=== PATIENT | female | born 1990 | race Caucasian/White ===

== ENCOUNTER 2021-01-15 21:05 | Emergency (ER) | payer OTHER, SELFPAY ==
[2021-01-15 21:10] VITALS: RESP 16; BMI 25.9
[2021-01-15 21:37] VITALS: BP 128/74; PULSE 92; RESP 14; TEMP 36.4; O2SAT 97
--- NOTE | 2021-01-15 21:52 | ED_ITS ---
HPI - Alcohol General Chief Complaint: ETOH/Substance Use Stated Complaint: ETOH Time Seen by Provider: 01/15/21 21:34 Source: patient Mode of arrival: EMS Limitations: other (Patient is intoxicated) History of Present Illness HPI narrative: 30-year-old female who was sent to the emergency department by police for acute intoxication and wellness check. The patient told me that was drinking vodka today. She cannot recount how much alcohol she drank. She states that she got in a fight with her and went to a hotel because she needed some space. She states that her was concerned about her and c alled he called police to do a wellness check at the hotel. The police found the patient to be intoxicated and disorderly and the patient agreed to come to the hospital for a wellness check and evaluation. Here in the emergency department the patient is acutely intoxicated but is able to answer all questions appropriately. She states that she has a 7-month-old daughter that she would never hurt herself or anyone else. She denied being suicidal or homicidal. The patient states that she does have anxiety. She states that when she was 22 she did cut herself but has not cut herself since then. Here in the emergency department the patient does appear to be intoxicated and does have a staggering gait but is able to walk. She is able answer all questions appropriately. After my interview, the patient agreed to stay in the chair and sleep until she was sober however she attempted to get up and leave the emergency department, security had to be contacted and the patient was escorted back to her hallway chair. The patient called her and I did talk to him over the phone. He states that he is willing to pick her up and take her home and assume care of her. The patient will be kept in the emergency department until her arrives to take her home. Review of Systems Review of Systems: Yes all other systems are reviewed and are negative [facility] Past Medical History [facility] Narrative: Past medical history: Anxiety, celiac disease. Past surgical history: 7 months prior. Social history: The patient is . She has a 7-month-old daughter. She denies tobacco use. She states that she drinks alcohol twice a week and mainly drinks vodka. She does admit to drinking vodka today but cannot quantify how much she drank. Social History Social History Advance Directives: No Advance Directives Information Provided: No Patient : No Physical Exam Vital Signs: Vital Signs: Last Vital Signs Temp 97.5 F 01/15/21 21:37 Pulse 92 01/15/21 21:37 Resp 14 01/15/21 21:37 BP 128/74 01/15/21 21:37 Pulse Ox 97 01/15/21 21:37 Body Mass Index 25.9 Const: Other: Awake, alert female, patient does have the odor of alcohol on her breath, she has a bur to answer all questions appropriately. The patient does have a staggering gait but is able to walk without assistance. HENMT: Head: Yes normal to inspection, Yes normocephalic and Yes atraumatic Ears: external ears normal General nose exam: Normal external nose present Face and sinus: Yes normal facial exam Mouth: Normal oral and palatal mucosa present Throat: Yes posterior oropharynx normal Eyes: General: appearance normal, both eyes and all related structures Pupils: Equal, round and reactive pupils present Neck: Neck: Yes normal visual inspection, Yes no lymphadenopathy, Yes trachea midline and Yes supple Chest: Chest palpation & inspection: normal inspection of the chest and normal palpation of entire chest wall Resp: Effort & Inspection: normal respiratory effort and able to speak in complete sentences Auscultation: clear to auscultation bilaterally Cardio: Rate: regular rate Rhythm: regular rhythm Heart sounds: S1 normal heart sound present, S2 normal heart sound present and no murmurs GI: Inspection: Yes normal to inspection Palpation (GI): Soft to palpation, nontender and no guarding Auscultation: normal bowel sounds : General: Yes no CVA tenderness Back/Spine/Pelvis: Back: no CVA tenderness Skin: General skin exam: no rashes or lesions noted Neuro: Cranial nerves: Yes CN's II-XII intact bilaterally and Yes Equal, round and reactive pupils present Cognition (Neuro): normal cognition Motor exam (neuro): 5/5 motor strength present throughout Extrem: General: Yes normal to inspection Psych: Appearance: grossly normal Speech and movement: Normal speech and movement present Affect: normal affect Attitude: cooperative Thought process: Normal thought process present Thought content: suicidality and no homicidality Course Course Course Narrative: 30-year-old female who got into an argument with her , she was drinking alcohol this evening and she checked herself into a hotel in order to ?get some space ?. The patient's was concerned that the patient went to a hotel and called the police to do a wellness check. The police found the patient to be acutely intoxicated and uncooperative, the patient did voluntarily agree to come to the emergency department for evaluation. The patient does appear to be acutely intoxicated however she does answer all questions appropriately and is able to walk with a staggering gait. She denied being suicidal or homicidal. The patient wants to leave the emergency department and does not want any further evaluation, she refused blood work and she does not want to talk to a crisis counselor. I did discuss this with the patient's and he states that he will come to the emergency department, assumed care of the patient and take her home. The patient did tell me that she feels safe with her and does not feel threatened in any way and does feel safe going home with him. Discharge Plan Discharge Clinical Impression: Alcoholic intoxication Patient Disposition: Home, Self-Care Instructions: Alcohol Intoxication (ED), Alcohol Use Disorder (ED) Additional Instructions: Your being discharged home in the care of your . You should consider getting counseling for your alcohol use disorder. Follow-up with your doctor in 2 days. Please return to the emergency department if your symptoms get worse or if you develop any symptoms that are concerning to you.
== END 2021-01-15 22:08 | disposition home or self-care (01) ==
PROVIDERS: Emergency Provider Emergency Medicine Emergency Medical Services
DX: F10.129 Alcohol abuse with intoxication, unspecified (principal); Y90.9 Presence of alcohol in blood, level not specified
CPT/HCPCS: 99283

== ENCOUNTER 2021-09-28 13:28 | Emergency (ER) | payer OTHER, SELFPAY ==
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
[2021-09-28 13:55] VITALS: BP 131/76; PULSE 130; RESP 16; TEMP 37.1; O2SAT 98
[2021-09-28 13:58] LABS: MANUAL DIFF FLAG NO
[2021-09-28 14:10] LABS: Basophils Percent Auto 0.2 % (0-2); Hematocrit 43.3 % (37.0-47.0); Hemoglobin 14.3 g/dl (12.0-16.0); Imm Gran Abs Auto 0.02 X10*3/uL (0.00-0.03); Imm Gran Pct Auto 0.3 % (0.0-0.4); Lymphocytes Absolute Auto 1.1 X10*3/uL (1.2-4.9); Lymphocytes Percent Auto 17.4 % (20-40); Mean Corpuscular Hemoglobin 30.4 pg (27.0-33.0); Mean Corpuscular Volume 92.1 fL (80.0-98.0); Mean Platelet Volume 9.2 fL (9.4-12.3); Monocytes Absolute Auto 0.4 X10*3/uL (0.1-1.2); Monocytes Percent Auto 5.8 % (2-11); Neutrophils Percent Auto 76.3 % (45-73); Platelet Count 233 X10*3/uL (160-400); Red Cell Distribution Width 13.5 % (11.0-16.0); White Blood Count 6.5 X10*3/uL (4.8-10.8)
--- NOTE | 2021-09-28 14:11 | PC.NURSE ---
ED delivery technician brought to authors attention that pt was verbalizing SI while taking vitals, and stated she wanted to see crisis. approached pt, pt calm, making eye contact, speaking in full sentances. states she wishes to see crisis. report called to JOYCE Soto. pt moved to pod. pt was medically cleared by JOSÉ Dockery prior to transfer to .
[2021-09-28 14:18] LABS: Alanine Aminotransferase 31 U/L (0-31); Albumin Level 4.7 g/dL (3.5-5.0); Alkaline Phosphatase 96 U/L (39-117); Anion Gap 16 (12-20); Aspartate Amino Transferase 19 U/L (5-31); Bilirubin Total 0.5 mg/dL (0.0-1.0); Blood Urea Nitrogen 14 mg/dL (9-16); Calcium 9.1 mg/dL (8.4-10.2); Carbon Dioxide 18 mmol/L (22-29); Chloride 109 mmol/L (96-108); Estimated Glomerular Filt Rate > 60; Glucose Random 146 mg/dL (60-115); Potassium 3.3 mmol/L (3.3-5.1); Sodium 140 mmol/L (135-145); Total Protein 7.6 g/dL (6.5-8.0)
[2021-09-28 14:38] VITALS: BMI 28.3
--- NOTE | 2021-09-28 14:46 | MHC.CARE ---
Section 12A signed
--- NOTE | 2021-09-28 14:46 | MHC.CARE ---
Pt pending crisis eval after toxicology screen completed.
--- NOTE | 2021-09-28 14:49 | PC.NURSE ---
PT CAME UP TO NURSES STATION STATING SHE NEEDED TO LEAVE NOW. SECTION 12 PLACED ON CHART BY CARE TEAM
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
[2021-09-28 15:45] LABS: COVID-19 Test Negative (Negative); IDNOW Serial# 55D5AD1C
[2021-09-28 16:07] LABS: Ethanol 85 mg/dL
--- NOTE | 2021-09-28 16:12 | PC.NURSE ---
pt asking to read section 12 paperwork, explained that patient is here pending re eval. pt is tearful, but cooperative. multiple phone calls made to family by pt.
--- NOTE | 2021-09-28 16:30 | PC.NURSE ---
urine sample obtained.
[2021-09-28 16:41] LABS: Appearance Urine CLEAR; Color Urine YELLOW; Glucose Urine UA NEG (NEG); Leukocyte Esterase Urine NEG (NEG); Nitrite Urine NEG (NEG); Urine Blood NEG (NEG); Urine Ketones NEG (NEG); Urine Protein NEG (NEG-TRACE)
[2021-09-28 16:57] LABS: Amphetamine Screen Urine Not Detected (Not Detect); Barbiturates, Urine Not Detected (Not Detect); Benzodiazepines Screen Urine Not Detected (Not Detect); Cannabinoid Screen Urine Not Detected (Not Detect); Cocaine Screen Urine Not Detected (Not Detect); Fentanyl, urine Not Detected (Not Detect); Opiate Screen Urine Not Detected (Not Detect); Phencyclidine Screen Urine Not Detected (Not Detect)
--- NOTE | 2021-09-28 18:28 | PC.NURSE ---
Elen documented w pt BAL and tox results, per CARE team, plan for supervisor core drilling to come by ilya for eval.
[2021-09-28] MEDS: Famotidine 20 MG TABLET 40 MG PO (19:31)
[2021-09-28] MEDS: DULoxetine HCl 60 MG CAPSULE.DR 120 MG PO (19:31)
[2021-09-28] MEDS: hydrOXYzine HCL 50 MG TABLET PO (19:32)
[2021-09-28] MEDS: lisinopriL 10 MG TABLET PO (19:32)
[2021-09-28] MEDS: OLANZapine 10 MG TABLET 20 MG PO (19:32)
[2021-09-28] MEDS: Topiramate 100 MG TABLET PO (19:32)
[2021-09-28] MEDS: Doxepin HCl 10 MG CAPSULE PO (19:58)
--- NOTE | 2021-09-28 20:06 | PC.NURSE ---
Patient received her nighttime medication at 2004, requested her Ambien advised wait for an hour for clinician, agreed, currently in her room resting, VSS, will continue to monitor.
[2021-09-28 20:59] VITALS: BP 147/99; PULSE 107
[2021-09-28] MEDS: Zolpidem Tartrate 5 MG TABLET 10 MG PO (21:22)
[2021-09-28] MEDS: LORazepam 1 MG TABLET PO (21:22)
[2021-09-29 01:38] VITALS: BP 123/95; PULSE 102; RESP 17; TEMP 36.6; O2SAT 100
--- NOTE | 2021-09-29 06:37 | PC.NURSE ---
Patient slept through the night, no distress observed/reported, [facility] referral completed/confirmed/pending ETA, medication compliant, asymptomatic of withdrawal, Ativan 1 mg po administered at HS with + effect, VSS, behavior non concerning, will continue to monitor.
[2021-09-29] MEDS: hydrOXYzine HCL 50 MG TABLET PO (07:16)
[2021-09-29] MEDS: DULoxetine HCl 60 MG CAPSULE.DR 120 MG PO (07:16)
[2021-09-29] MEDS: Famotidine 20 MG TABLET 40 MG PO (07:25)
[2021-09-29] MEDS: LORazepam 1 MG TABLET PO (09:05)
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
--- NOTE | 2021-09-30 14:21 | MHC.CARE ---
Follow up phone call after discharge, no answer, left message requesting a return phone call.
--- NOTE | 2021-10-01 09:56 | MHC.CARE ---
CARE Team completed followup call
== END 2021-09-29 10:46 | disposition home or self-care (01) ==
PROVIDERS: Physician Assistant Medical; Emergency Provider Emergency Medicine Emergency Medical Services; PCP Physician Assistant
DX: F33.1 Major depressive disorder, recurrent, moderate (principal); R45.851 Suicidal ideations; F43.11 Post-traumatic stress disorder, acute; Z20.822 Contact with and (suspected) exposure to COVID-19; Z79.899 Other long term (current) drug therapy
CPT/HCPCS: 36415; 80053; 80307; 81003; 82077; 85025; 87635; 99284

== ENCOUNTER 2022-02-11 11:36 | Emergency (ER) | payer MEDICAID, SELFPAY ==
--- NOTE | ~2022-02-11 | XR_ITS ---
EXAMINATION: XR CHEST CLINICAL INFORMATION: Mental status change. COMPARISON: None TECHNIQUE: Frontal view of the chest was obtained. FINDINGS: Low lung volumes and evaluation. The lungs are clear. The heart and mediastinal structures are unremarkable. XR/XR chest 1V IMPRESSION: No acute cardiopulmonary process.
--- NOTE | ~2022-02-11 | CT_ITS ---
EXAMINATION: CT HEAD WITHOUT CONTRAST CLINICAL INFORMATION: Mental status change. COMPARISON: None TECHNIQUE: Contiguous axial imaging was performed from the skull base to vertex without intravenous administration of contrast. Coronal and sagittal reformatted images were obtained. Several AP scans repeated secondary to motion artifact. This CT examination was performed using dose optimization techniques as appropriate, variously including the following: *Automated exposure control *Adjustment of mA and/or kV according to patient size (this includes techniques or standardized protocols for targeted exams where dose is matched to indication/reason for exam; i.e. extremities or head) *Use of iterative reconstruction technique DLP: 1264 mGy-cm FINDINGS: The cortical sulci are normal. The lateral ventricles are symmetrical. The third and fourth ventricles are in their normal midline position. The basilar and prepontine cisterns are unremarkable. There is no acute intra or extracerebral abnormality. There is no mass effect or midline shift. Sections through the bony calvarium are unremarkable. The paranasal sinuses are clear. The bony orbits and orbital contents are unremarkable. CT/CT head/brain wo IV con IMPRESSION: No acute intracranial pathology.
[2022-02-11 11:58] VITALS: BP 110/80; PULSE 110; O2SAT 99
--- NOTE | 2022-02-11 12:01 | ECG_ITS ---
Test Reason : AMS Blood Pressure : / mmHG Vent. Rate : 102 BPM Atrial Rate : 102 BPM P-R Int : 146 ms QRS Dur : 102 ms QT Int : 374 ms P-R-T Axes : 000 147 142 degrees QTc Int : 487 ms Sinus tachycardia Left posterior fascicular block RSR' or QR pattern in V1 suggests right ventricular conduction delay Possible Suspect limb lead reversal, interpretation assumes no reversal Abnormal ECG No previous ECGs available suggest repeat study Referred By: Duglas Reyes Electronically Signed By:JOSÉ ANTONIO MEDEL MD
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
[2022-02-11 12:22] LABS: Appearance Urine Clear; Color Urine Yellow; Glucose Urine UA Negative (Negative); Leukocyte Esterase Urine Negative (Negative); Nitrite Urine Negative (Negative); PH 6.5 (5.0-9.0); Specific Gravity - Urine <= 1.005 (1.005-1.025); Urine Blood Negative (Negative); Urine Ketones Negative (Negative); Urine Protein Negative (Neg-Trace)
[2022-02-11 12:23] LABS: UPreg QC Valid YES; Urine Pregnancy NEGATIVE (NEGATIVE)
[2022-02-11 12:31] LABS: COVID-19 Test Negative (Negative); IDNOW Serial# 9DB6401D
[2022-02-11 12:33] VITALS: BP 114/62; PULSE 97; RESP 16; TEMP 35.6; O2SAT 96; BMI 22.7
[2022-02-11 12:56] LABS: MANUAL DIFF FLAG NO
[2022-02-11 12:58] LABS: Hematocrit 41.7 % (37.0-47.0); Hemoglobin 13.9 g/dl (12.0-16.0); Imm Gran Abs Auto 0.01 X10*3/uL (0.00-0.03); Imm Gran Pct Auto 0.2 % (0.0-0.4); Lymphocytes Absolute Auto 1.6 X10*3/uL (1.2-4.9); Lymphocytes Percent Auto 26.8 % (20-40); Mean Corpuscular HGB Conc 33.3 g/dl (31.0-35.0); Mean Corpuscular Hemoglobin 30.5 pg (27.0-33.0); Mean Corpuscular Volume 91.6 fL (80.0-98.0); Mean Platelet Volume 9.4 fL (9.4-12.3); Monocytes Absolute Auto 0.3 X10*3/uL (0.1-1.2); Monocytes Percent Auto 5.6 % (2-11); Neutrophils Absolute Auto 4.1 x10*3/uL (2.0-8.3); Neutrophils Percent Auto 67.4 % (45-73); Platelet Count 207 X10*3/uL (160-400); Red Blood Count 4.55 X10*6/uL (4.20-5.50)
[2022-02-11 13:12] LABS: Ethanol 321 mg/dL
[2022-02-11 13:15] LABS: Amphetamine Screen Urine Not Detected (Not Detect); Barbiturates, Urine Not Detected (Not Detect); Benzodiazepines Screen Urine Not Detected (Not Detect); Cannabinoid Screen Urine Not Detected (Not Detect); Cocaine Screen Urine Not Detected (Not Detect); Fentanyl, urine Not Detected (Not Detect); Opiate Screen Urine Not Detected (Not Detect); Phencyclidine Screen Urine Not Detected (Not Detect)
[2022-02-11 13:15] LABS: Acetaminophen LAB < 1 mcg/mL (<30); Magnesium 2.6 mg/dL (1.6-2.6); Salicylate < 5.0 mg/dL (15-30)
[2022-02-11 13:17] LABS: Alanine Aminotransferase 38 U/L (0-31); Albumin Level 4.7 g/dL (3.5-5.0); Alkaline Phosphatase 95 U/L (39-117); Anion Gap 18 (12-20); Aspartate Amino Transferase 20 U/L (5-31); Bilirubin Direct < 0.2 mg/dL (0.0-0.5); Bilirubin Total 0.2 mg/dL (0.0-1.0); Blood Urea Nitrogen 10 mg/dL (9-16); Calcium 8.6 mg/dL (8.4-10.2); Carbon Dioxide 17 mmol/L (22-29); Chloride 113 mmol/L (96-108); Creatinine Clr Calc Pharmacy 91.9; Estimated Glomerular Filt Rate > 60; Glucose Random 96 mg/dL (60-115); Lipase 17 U/L (8-78); Potassium 3.7 mmol/L (3.3-5.1); Sodium 144 mmol/L (135-145); Total Protein 7.7 g/dL (6.5-8.0)
[2022-02-11 13:20] LABS: B Type Natriuretic Peptide 14 pg/mL (<100)
[2022-02-11] MEDS: 0.9 % Sodium Chloride 1,000 ML 999 ML IV (13:50)
--- OUTSIDE RECORDS SUMMARY | 2022-02-11 13:57 | XMS_ITS | Continuity of Care Document ---
:1990 Author Organization [facility] Address [address] [place] [address]- Care Team Providers Name Role Phone Not on Staff, PCP Primary Care Physician Unavailable Encounter [facility] NBR [id number] Date(s): 05/17/21 - 06/16/21 [facility] [address] [place], [place] [id number]
--- OUTSIDE RECORDS SUMMARY | 2022-02-11 13:57 | XMS_ITS | Continuity of Care Document ---
:1990 Author Organization [facility] Address [address] [place] [address], [address] [place] [id number]- Care Team Providers Name Role Phone Tyson Zapata Primary Care Physician Encounter [facility] Date(s): 09/19/21 - 10/19/21 [facility] [address] [place] [address], [address] [place] [id number] Attending Physician: AdmAdriana ortiz Admitting Physician: AdmtrAdriana Referring Physician: Admtr, Ar8 Allergies, Adverse Reactions, Alerts Substance Reaction Severity Status Glutens Active Wheat Active anabolic steroids1 Active 1Family hx of pyschiatric issues with steroids Immunizations Given and Recorded Vaccine Date Status Refusal Reason SARS-CoV-2 (COVID-19) mRNA BNT-162b2 vac 01/26/21 Recorde d influenza virus vaccine, inactivated 12/21/20 Recorded influenza virus vaccine, inactivated 02/05/15 Recorded hepatitis B adult vaccine 12/02/16 Recorded tetanus/diphtheria/pertussis, acel(Tdap) 04/07/14 Recorde d tetanus/diphtheria/pertussis, acel(Tdap) 11/21/05 Recorde d Human Papillomavirus Vaccine 06/26/07 Recorded Human Papillomavirus Vaccine 03/10/07 Recorded Human Papillomavirus Vaccine 01/06/07 Recorded Measles/Mumps/Rubella Virus Vaccine 12/02/95 Recorded Measles/Mumps/Rubella Virus Vaccine 02/15/93 Recorded Poliovirus Vaccine, Inactivated 11/21/95 Recorded Poliovirus Vaccine, Inactivated 05/15/93 Recorded Poliovirus Vaccine, Inactivated 03/16/92 Recorded Poliovirus Vaccine, Inactivated 01/20/92 Recorded diphtheria/tetanus/pertussis, acel(DTaP) 11/21/95 Recorde d diphtheria/tetanus/pertussis, acel(DTaP) 05/15/93 Recorde d diphtheria/tetanus/pertussis, acel(DTaP) 06/05/92 Recorde d diphtheria/tetanus/pertussis, acel(DTaP) 03/16/92 Recorde d diphtheria/tetanus/pertussis, acel(DTaP) 01/20/92 Recorde d hepatitis B pediatric vaccine 08/17/92 Recorded hepatitis B pediatric vaccine 01/20/92 Recorded hepatitis B pediatric vaccine 91 Recorded Medications famotidine 40 mg oral tablet 1 tablet = 40 mg, By Mouth, 2 times a day, Take twice a day morning and night on an empty stomach for at least 2 weeks if symptoms improve reduced to a daily dose, # 60 tablet, 2 Refills, Maintenance, 09/20/21 16:28:00 EDT, Tablet, [email or web address] Start Date: 09/20/21 Stop Date: 12/19/21 Status: Ordered Problem List Condition Effective Dates Status Health Status Informant Anxiety(Confirmed) Active Celiac disease(Confirmed) Active Depression(Confirmed) Active Hypertension(Confirmed) Active Insomnia(Confirmed) Active PTSD (post-traumatic stress Active disorder)(Confirmed) Fatty liver(Confirmed) Active Social History Social History Type Response Smoking Status Never (less than 100 in life time) entered on: 06/28/21 Sex
--- OUTSIDE RECORDS SUMMARY | 2022-02-11 13:57 | XMS_ITS | Continuity of Care Document ---
:1990 Author Organization [facility] Address [address] [place] [address]- Care Team Providers Name Role Phone Tyson Zapata Primary Care Physician Encounter [facility] Date(s): 05/17/21 - 07/18/21 [facility] [address] [place] [address]- Attending Physician: Crow Ya Allergies, Adverse Reactions, Alerts Substance Reaction Severity [...] Recorded hepatitis B pediatric vaccine 91 Recorded Problem List Condition Effective Dates Status Health Status Informant Anxiety(Confirmed) Active Celiac disease(Confirmed) Active Depression(Confirmed) Active Hypertension(Confirmed) Active Insomnia(Confirmed) Active PTSD (post-traumatic stress Active disorder)(Confirmed) Fatty liver(Confirmed) Active Social History Social History Type Response Smoking Status Never (less than 100 in life time) entered on: 06/28/21 Sex
--- OUTSIDE RECORDS SUMMARY | 2022-02-11 13:57 | XMS_ITS | Continuity of Care Document ---
:1990 Author Organization [facility] Address [address] [place] [address]- Care Team Providers Name Role Phone Tyson Zapata Primary Care Physician Encounter [facility] Date(s): 05/17/21 - 06/28/21 [facility] [address] [place] [address]- Attending Physician: Christiano EID [facility] Allergies, Adverse Reactions, Alerts Substance Reaction Severity [...]
--- OUTSIDE RECORDS SUMMARY | 2022-02-11 13:57 | XMS_ITS | Continuity of Care Document ---
:1990 Author Organization [facility] Address [address] [place] [address], [address] [place] [id number]- Care Team Providers Name Role Phone Tyson Zapata Primary Care Physician [facility] Date(s): 07/04/21 - 10/19/21 [facility] [address] [place] [address], [address] [place] [id number] Attending Physician: Not on Staff, Attending MD Referring Physician: Tsyon Zapata Allergies, Adverse Reactions, Alerts Substance Reaction Severity [...] 2 Refills, Maintenance, 09/20/21 16:28:00 EDT, Tablet, [facility]... Start Date: 09/20/21 Stop Date: [...]
--- NOTE | 2022-02-11 14:14 | PC.NURSE ---
Pt sleeping, at bedside. IV established and fluids running. Pt up to use restroom with two assist as pt is unsteady on her feet.
--- NOTE | 2022-02-11 16:42 | PC.NURSE ---
patient exit seeking multiple times, stating she needs to go home and does not need to stay here. patient a high fall risk and alcohol level in the 300s. patient unsafe to go home or ambulate independently. patient placed in physical restraints by security. order placed by
[2022-02-11] MEDS: LORazepam 1 MG TABLET 2 MG PO (17:00)
--- NOTE | 2022-02-11 17:01 | PC.NURSE ---
pt offered po ativan to help relax her while in restraints. pt accepts. MD ordered and ativan administered. pt tolerating restraints well. hydration provided, cms intact. will continue to monitor closely
[2022-02-11 17:11] VITALS: BP 137/88; PULSE 116; RESP 18; O2SAT 97
--- NOTE | 2022-02-11 18:27 | PC.NURSE ---
2 arm restraints removed by MD Reyes @[phone]
--- NOTE | 2022-02-11 19:05 | PC.NURSE ---
patient eloped - given belongings/phone/purse to contact family for safe ride home per MD Reyes request - pt then took belongings and eloped. apparently let out of department by security. MD BREEN'd. patients talked to on phone.
[2022-02-11 19:06] LABS: Ethanol 196 mg/dL
== END 2022-02-11 19:07 | disposition left against medical advice (07) ==
PROVIDERS: Emergency Provider Emergency Medicine
DX: R41.82 Altered mental status, unspecified (principal); F10.920 Alcohol use, unspecified with intoxication, uncomplicated; Y90.8 Blood alcohol level of 240 mg/100 ml or more; R45.1 Restlessness and agitation; Z78.1 Physical restraint status; Z20.822 Contact with and (suspected) exposure to COVID-19; Z79.899 Other long term (current) drug therapy
CPT/HCPCS: 36415; 70450; 71045; 80048; 80076; 80143; 80179; 80307; 81003; 81025; 82077; 83605; 83690; 83735; 83880; 85025; 87635; 93005; 96360; 96361; 99284

== ENCOUNTER 2022-08-12 11:28 | Emergency (ER) | payer OTHER, SELFPAY ==
[2022-08-12 11:43] VITALS: BP 143/92; PULSE 92; RESP 18; TEMP 36.6; O2SAT 98; BMI 27.5
[2022-08-12 11:57] LABS: Appearance Urine Clear; Color Urine Yellow; Glucose Urine UA Negative (Negative); Leukocyte Esterase Urine Negative (Negative); Nitrite Urine Negative (Negative); Specific Gravity - Urine 1.015 (1.005-1.025); Urine Blood Negative (Negative); Urine Ketones Negative (Negative); Urine Protein Negative (Neg-Trace)
[2022-08-12 11:58] LABS: Urine Pregnancy NEGATIVE (NEGATIVE)
[2022-08-12 11:59] LABS: UPreg QC Valid YES
--- NOTE | 2022-08-12 12:00 | ED.MEDCLEAR ---
HPI - Medical Clearance General Chief complaint: Medical Clearance Stated complaint: medical clearence Time Seen by Provider: 08/12/22 11:58 Source: patient Mode of arrival: ambulatory Limitations: no limitations History of Present Illness HPI Narrative: Patient is a 31 year old assigned female at with a history of anxiety presenting to the emergency department today requesting medical clearance to go to a half way house. Patient states that she needs to get cleared to go to a half way house by getting a drug test and a covid test. Patient denies any dizziness, lightheadedness, abdominal pain, nausea, vomiting, fever, chills, blurry vision, double vision, loss of vision, chest pain, difficulty breathing, shortness of breath, back pain, night sweats, pain with urination, increased urinary frequency, increased urinary urgency, blood in her urine or stool, syncope or a near syncopal episode, recent trauma or falls, bowel incontinence, bladder incontinence, bowel retention, bladder retention, or any other complaints at this time. Treatments Prior to Arrival: none Related Information Home Medications Medication Instructions Recorded Confirmed Vitamin D3 09/28/21 doxepin 10 mg capsule 1 cap PO BEDTIME 09/28/21 09/28/21 duloxetine 60 mg capsule,delayed 2 cap PO QAM 09/28/21 09/28/21 release famotidine 40 mg tablet 1 tab PO BID 09/28/21 09/28/21 hydroxyzine HCl 50 mg tablet 1 tab PO BID 09/28/21 09/28/21 lisinopril 10 mg tablet 1 tab PO BEDTIME 09/28/21 09/28/21 multivitamin cap 09/28/21 olanzapine 20 mg tablet 1 tab PO BEDTIME 09/28/21 09/28/21 topiramate 100 mg tablet 1 tab PO QPM 09/28/21 09/28/21 zolpidem 10 mg tablet 1 tab PO BEDTIME PRN Insomnia 09/28/21 09/28/21 Allergies Allergy/AdvReac Type Severity Reaction Status Date / Time No Known Allergies Allergy Verified 08/12/22 11:42 Review of Systems Constitutional: Constitutional: Reports no additional constitutional complaints, Denies chills, Denies fever(s) and Denies night sweats Eyes: Eyes: Reports no additional eye complaints, Denies blurry vision, Denies change in vision, Denies diplopia, Denies eye discharge, Denies loss of vision and Denies eye pain ENT: Denies dizziness Cardiovascular: Cardiovascular: Reports no additional cardiovascular complaints, Denies chest pain, Denies lightheadedness, Denies Loss of Consciousness and Denies dyspnea Respiratory: Respiratory: Reports no additional respiratory complaints and Denies dyspnea Gastrointestinal: Gastrointestinal: Reports no additional gastrointestinal complaints, Denies abdominal pain, Denies melena, Denies hematochezia, Denies change in bowel habits and Denies change in stool character Genitourinary: Genitourinary: Denies hematuria, Denies urinary frequency, Denies dysuria, Denies urinary incontinence, Denies urinary hesitancy and Denies urinary urgency Musculoskeletal: Musculoskeletal: Reports no additional musculoskeletal complaints, Denies numbness and Denies tingling Neurologic: Denies dizziness, Denies loss of vision, Denies numbness and Denies tingling Psychiatric: Psychiatric: Reports no additional psychiatric complaints Endocrine: Endocrine: Reports no additional endocrine complaints Hematologic/Lymphatic: Hematologic/Lymphatic: Reports no additional hematologic/lymphatic complaints Allergic/Immunologic: Allergic/Immunologic: Reports no additional allergic/immunologic complaints PMFSH Past Medical History Attestation statement: The following information was validated with the patient. Source: old records reviewed and nursing notes reviewed Social History Social History Advance Directives: No Advance Directives Information Provided: Yes Physical Exam Vital Signs: Vital Signs: Last Vital Signs Temp 98 F 08/12/22 11:43 Pulse 92 08/12/22 11:43 Resp 18 08/12/22 11:43 BP 143/92 H 08/12/22 11:43 Pulse Ox 98 08/12/22 11:43 O2 Del Method Room Air 08/12/22 11:43 BMI result Body Mass Index 27.5 Const: General: cooperative, no acute distress, alert and awake Nutritional Appearance: well nourished Orientation/consciousness: patient oriented x3 Limitations: no limitations HEENT: Head: Yes normal to inspection and Yes atraumatic Ears: hearing grossly normal bilaterally and external ears normal General nose exam: Normal external nose present, no nasal discharge noted and no epistaxis Face and sinus: Yes normal facial exam, No abrasion and No laceration Mouth: Normal oral and palatal mucosa present, no drooling and no muffled voice Eyes: General: appearance normal, both eyes and all related structures Periorbital: periorbital findings normal Eyelids: Yes eyelids normal Conjunctivae: conjunctivae normal Pupils: Equal, round and reactive pupils present EOM: EOMs intact bilaterally Neck: Neck: Yes normal visual inspection, Yes full ROM and Yes no lymphadenopathy Chest: Chest palpation & inspection: normal inspection of the chest Resp: Effort & Inspection: normal respiratory effort and able to speak in complete sentences Auscultation: clear to auscultation bilaterally Cardio: Rate: regular rate Rhythm: regular rhythm GI: Inspection: Yes normal to inspection Neuro: General: patient oriented x3 and moves all extremities Cranial nerves: Yes Equal, round and reactive pupils present Cognition (Neuro): normal cognition Motor exam (neuro): 5/5 motor strength present throughout Sensory Exam: Normal double simultaneous stimulation for sensation Coordination: [id number] test normal Extrem: General: Yes normal to inspection, Yes full ROM and Yes capillary refill normal Psych: Appearance: grossly normal Mental Status: mental status grossly normal Affect: normal affect Attitude: cooperative Thought process: Normal thought process present Thought content: Normal thought content present Insight: Good insight present (Psych) Medical Decision Making Medical Decision Making MDM Narrative: Patient is a 31 year old assigned female at with a history of anxiety presenting to the emergency department today requesting medical clearance. Patient's physical exam was unremarkable. I explained my physical exam findings as well as all test results to the patient. I answered all questions asked by the patient. I stressed the importance of the patient taking her medication as prescribed. I stressed the importance of the patient following up with her primary care provider. I stressed the importance of the patient returning to the emergency department immediately if her symptoms were to worsen or if she were to develop any dizziness, shortness of breath, difficulty breathing, chest pain, blurry vision, loss of vision, nausea, vomiting, abdominal pain, fever, chills, back pain, or any other complaints. Patient verbalized agreement and understanding with this treatment plan and discharge. Differential Diagnosis Differential Diagnoses: The differential diagnosis associated with the presentation includes medical clearance Lab Data [facility] Lab Attestation statement: I reviewed the patient's lab results. Labs: Lab Results 08/12/22 08/12/22 08/12/22 Range/Units 11:48 11:48 11:48 Urine Color Yellow Urine Appearance Clear Urine pH 6.0 (5.0-9.0) Ur Specific [place] 1.015 (1.005-1.025) Urine Protein Negative (Neg-Trace) mg/dL Urine Glucose (UA) Negative (Negative) mg/dL Urine Ketones Negative (Negative) mg/dL Urine Blood Negative (Negative) Urine Nitrite Negative (Negative) Ur Leukocyte Esterase Negative (Negative) Urine Test NEGATIVE (NEGATIVE) Urine Opiates Screen (Not Detect) Urine Fentanyl Screen (Not Detect) Ur Barbiturates Screen (Not Detect) Ur Phencyclidine Scrn (Not Detect) Ur Amphetamines Screen (Not Detect) U Benzodiazepines Scrn (Not Detect) Urine Cocaine Screen (Not Detect) U Marijuana (THC) Screen (Not Detect) COVID-19 (MARCIAL) Negative (Negative) COVID-19 Clin Com See Note 08/12/22 Range/Units 11:48 Urine Color Urine Appearance Urine pH (5.0-9.0) Ur Specific [place] (1.005-1.025) Urine Protein (Neg-Trace) mg/dL Urine Glucose (UA) (Negative) mg/dL Urine Ketones (Negative) mg/dL Urine Blood (Negative) Urine Nitrite (Negative) Ur Leukocyte Esterase (Negative) Urine Test (NEGATIVE) Urine Opiates Screen Not Detected (Not Detect) Urine Fentanyl Screen Not Detected (Not Detect) Ur Barbiturates Screen Not Detected (Not Detect) Ur Phencyclidine Scrn Not Detected (Not Detect) Ur Amphetamines Screen Not Detected (Not Detect) U Benzodiazepines Scrn Not Detected (Not Detect) Urine Cocaine Screen Not Detected (Not Detect) U Marijuana (THC) Screen Not Detected (Not Detect) COVID-19 (MARCIAL) (Negative) COVID-19 Clin Com Discharge Plan Discharge Clinical Impression: Normal exam Patient Disposition: Home, Self-Care Instructions: Normal Exam (ED) Additional Instructions: Follow up with your primary care provider. Return to the emergency department immediately if your symptoms worsen or if you develop any dizziness, shortness of breath, difficulty breathing, chest pain, blurry vision, loss of vision, nausea, vomiting, abdominal pain, fever, chills, back pain, or any other complaints. Prescriptions: No Action famotidine 40 mg tablet 1 tab PO BID hydroxyzine HCl 50 mg tablet 1 tab PO BID doxepin 10 mg capsule 1 cap PO BEDTIME lisinopril 10 mg tablet 1 tab PO BEDTIME zolpidem 10 mg tablet 1 tab PO BEDTIME PRN (Reason: Insomnia) topiramate 100 mg tablet 1 tab PO QPM olanzapine 20 mg tablet 1 tab PO BEDTIME duloxetine 60 mg capsule,delayed release(DR/EC) 2 cap PO QAM multivitamin Capsule Vitamin D3 Referrals: Tyson Morataya PA [Primary Care Provider] - Stand Alone Forms: Work/School Release Interventions: ED Discharge Assessment Last Done: 08/12/22 13:31 Discharge Date/Time: 08/12/22 13:32 Print Language: Spanish
[2022-08-12 12:19] LABS: COVID-19 Test Negative (Negative); IDNOW Serial# BCCEAD1C
[2022-08-12 12:51] LABS: Amphetamine Screen Urine Not Detected (Not Detect); Barbiturates, Urine Not Detected (Not Detect); Benzodiazepines Screen Urine Not Detected (Not Detect); Cannabinoid Screen Urine Not Detected (Not Detect); Cocaine Screen Urine Not Detected (Not Detect); Fentanyl, urine Not Detected (Not Detect); Opiate Screen Urine Not Detected (Not Detect); Phencyclidine Screen Urine Not Detected (Not Detect)
== END 2022-08-12 13:32 | disposition home or self-care (01) ==
PROVIDERS: Physician Assistant Medical; Emergency Provider Emergency Medicine; PCP Physician Assistant
DX: F41.9 Anxiety disorder, unspecified (principal); Z20.822 Contact with and (suspected) exposure to COVID-19; Z20.828 Contact with and (suspected) exposure to other viral communicable diseases; Z79.899 Other long term (current) drug therapy
CPT/HCPCS: 80307; 81003; 81025; 87635; 99282; 99284